=== PATIENT | male | born 1955 | race Caucasian/White ===

== ENCOUNTER → 2022-01-23 10:08 | Outpatient (CLI) | payer MEDICARE, SELFPAY ==
--- NOTE | ~2022-01-23 | CT_ITS ---
EXAMINATION: CT brain wo/w con DATE: 01/23/2022 10:57 INDICATION: Headache, memory change TECHNIQUE: Computed tomography (CT) of the head was performed without intravenous contrast. The mA wa s adjusted according to patient size. Iterative reconstruction technique was employed. Exam dose: 11 99.14 mGy-cm total exam DLP. COMPARISON: None FINDINGS: Vertebral and carotid siphon internal carotid artery calcifications are noted. There is nonspecific diminished attenuation cerebral white matter, likely due to chronic small vessel ischemic changes. No intracranial mass lesion or hemorrhage or cerebrovascular accident is evident. No midline shift or mass effect. No subdural or epidural hematoma. There is moderate cerebral volume loss, predominating in the frontal lobes and moderate cerebellar vo lume loss. No fracture or bone destruction of the cranial vault. The mastoid air cells and included paranasal si nuses are unremarkable. IMPRESSION: Cerebral atherosclerosis and chronic small vessel ischemic changes of the cerebral white matter Moderate cerebral and cerebellar volume loss No acute intracranial finding Reviewed, dictated and finalized at [facility]. Reviewed, dictated and finalized at [facility].
[2022-01-23 10:38] LABS: Estimated Glomerular Filt Rate > 60
== END ==
PROVIDERS: PCP Internal Medicine; Visit Provider Internal Medicine
DX: R51.9 Headache, unspecified (principal); R41.3 Other amnesia; I69.911 Memory deficit following unspecified cerebrovascular disease; I67.2 Cerebral atherosclerosis
CPT/HCPCS: 70470; Q9967

== ENCOUNTER 2023-02-12 11:40 | Emergency (ER) | payer MEDICARE, SELFPAY ==
--- NOTE | 2023-02-12 11:53 | ED.URI ---
HPI - URI/Sore Throat General Stated Complaint: congestion Time Seen by Provider: 02/12/23 11:53 Source: patient Mode of arrival: ambulatory Limitations: no limitations History of Present Illness HPI Narrative: Patient is a 67-year-old male that presents with 3 weeks of cough, congestion and intermittent sore throat and fever. Patient states each day his symptoms are not different. Has taken some [id number] medicine and Flonase daily. States everyone in his family in bed similar symptoms and improved with antibiotics. Denies any shortness of breath, ear pain, nausea, vomiting, diarrhea. States any time mucosa doctor his blood pressure is elevated. States he took it this morning and it was 125/80. Reports he cannot take steroids due to it causing his heart to race. States last time he had steroids he had a heart attack. Related Data Home Medications Medication Instructions Recorded Confirmed alprazolam 0.5 mg tablet 0.5 mg PO QID 07/18/22 aspirin 81 mg tablet,delayed 81 mg PO DAILY 07/18/22 release (Adult Low Dose Aspirin) lamotrigine 100 mg tablet 100 mg PO BID 07/18/22 lancets (Accu-Chek Softclix 07/18/22 Lancets) metoprolol tartrate 75 mg tablet 75 mg PO BID 07/18/22 Allergies Allergy/AdvReac Type Severity Reaction Status Date / Time atorvastatin [From Lipitor] Allergy Unknown Muscle Pain Verified 02/12/23 12:21 bupropion [From Wellbutrin] Allergy Unknown Agitated Verified 02/12/23 12:21 codeine Allergy Unknown Nausea Verified 02/12/23 12:21 escitalopram [From Lexapro] Allergy Unknown Agitated Verified 02/12/23 12:21 Review of Systems Review of Systems: All systems reviewed & are unremarkable except as noted in HPI and below Constitutional: Constitutional: Denies body ache(s), Denies chills, Denies fatigue, Denies fever(s), Denies headache(s), Denies malaise and Denies weakness Eyes: Eyes: Denies blurry vision, Denies itchy eyes and Denies loss of vision ENT: Denies otalgia, Denies headache(s), Reports nasal congestion, Denies sinus pain and Denies sore throat Cardiovascular: Cardiovascular: Denies chest pain, Denies irregular heart rhythm and Denies dyspnea Respiratory: Respiratory: Reports cough and Denies dyspnea Gastrointestinal: Gastrointestinal: Denies abdominal pain, Denies diarrhea, Denies nausea and Denies vomiting Musculoskeletal: Musculoskeletal: Denies back pain, Denies myalgias and Denies arthralgias Integumentary/Breasts: Skin/Breast: Denies pruritus and Denies rash Neurologic: Denies headache(s), Denies loss of vision and Denies weakness Psychiatric: Psychiatric: Reports no additional psychiatric complaints Endocrine: Endocrine: Denies fatigue Allergic/Immunologic: Allergic/Immunologic: Denies itchy eyes PMFSH Past Medical History Medical History (Updated 02/12/23 @ 12:24 by Tracy Underwood, PINKY) Anxiety Attention 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 hyperactivity CAD (coronary artery disease) 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 Diabetes Dizziness Dyslipidemia Falls frequently Hospital discharge follow-up Hypertension Hypothyroidism Ischemic cardiomyopathy Surgical History Surgical History H/O cardiac catheterization H/O hernia repair Family History Family History Mother Diabetes mellitus Hypertension Cerebrovascular accident Depression Father Rheumatoid arthritis Social History Social History Smoking status: Never smoker Alcohol intake: current Substance use: never Living arrangements: with family Spiritual care concerns: No Agree to blood products: No Comments At time of signature, agree with nursing past medical, surgical, social and family history. There is no relevant family history pertinent to the presenting complaint. Exam Const: Gen
[2023-02-12 11:59] VITALS: BP 178/87; PULSE 68; RESP 18; TEMP 36.7; O2SAT 100
== END 2023-02-12 12:27 | disposition home or self-care (01) ==
PROVIDERS: Emergency Provider Nurse Practitioner Family; PCP Family Medicine
DX: J06.9 Acute upper respiratory infection, unspecified (principal); R05.9 Cough, unspecified; I25.10 Atherosclerotic heart disease of native coronary artery without angina pectoris; Z94.1 Heart transplant status; Z95.1 Presence of aortocoronary bypass graft; E11.9 Type 2 diabetes mellitus without complications; E78.5 Hyperlipidemia, unspecified; I10 Essential (primary) hypertension; E03.9 Hypothyroidism, unspecified; F41.9 Anxiety disorder, unspecified; Z79.82 Long term (current) use of aspirin
CPT/HCPCS: 99213; G0463

== ENCOUNTER 2023-03-06 11:01 | Emergency (ER) | payer MEDICARE, SELFPAY ==
[2023-03-06 11:16] VITALS: BP 151/84; PULSE 75; RESP 16; TEMP 35.9; O2SAT 97
--- NOTE | 2023-03-06 11:29 | ED.SKABFB ---
HPI - Skin/Abscess/Foreign Bdy General Chief complaint: Skin/Abscess/Foreign Body Stated complaint: Insect Bite Rt Shoulder Time Seen by Provider: 03/06/23 11:33 Source: patient and RN notes reviewed Mode of arrival: ambulatory Limitations: dementia History of Present Illness HPI narrative: 67-year-old male presents with concern for tick bite to his right shoulder. Reports he pulled the takeoff Sunday, is not sure if the head came out. He reports a small red raised bumps. He denies tenderness, itching. Denies other rash. He denies general malaise, fever, aches, chills, sweats. Denies joint pain. MD complaint: insect bite/sting Related Data Home Medications Medication Instructions Recorded Confirmed alprazolam 0.5 mg tablet 0.5 mg PO QID 07/18/22 02/12/23 aspirin 81 mg tablet,delayed 81 mg PO DAILY 07/18/22 02/12/23 release (Adult Low Dose Aspirin) lamotrigine 100 mg tablet 100 mg PO BID 07/18/22 02/12/23 metoprolol tartrate 75 mg tablet 75 mg PO BID 07/18/22 02/12/23 arginine (L-arginine) 500 mg tablet 500 mg PO BID 02/12/23 02/12/23 citrulline 600 mg capsule (Pure See Rx Instructions .Route .COMPLEX 02/12/23 02/12/23 L-Citrulline) Allergies Allergy/AdvReac Type Severity Reaction Status Date / Time atorvastatin [From Lipitor] Allergy Unknown Muscle Pain Verified 02/12/23 12:21 bupropion [From Wellbutrin] Allergy Unknown Agitated Verified 02/12/23 12:21 codeine Allergy Unknown Nausea Verified 02/12/23 12:21 escitalopram [From Lexapro] Allergy Unknown Agitated Verified 02/12/23 12:21 Review of Systems Review of Systems: CONSTITUTIONAL: Denies malaise, chills, sweats, or fever. EYES: Denies redness, or discharge. ENT: Denies rhinorrhea, congestion, swollen lips, swollen tongue CARDIOVASCULAR: Denies chest pain, palpitations, or edema. RESPIRATORY: Denies cough or dyspnea. GASTROINTESTINAL: Denies abdominal pain, nausea, vomiting SKIN: Reports raised red area at the site of tick bite on his right shoulder, denies other rash. Denies purulent drainage, vesicles, bullae, numbness, pain beyond proportion MUSCULOSKELETAL: Denies joint pain or myalgia. NEUROLOGIC: Denies headache. 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 Diabetes Dizziness Dyslipidemia Falls frequently Hospital discharge follow-up Hypertension Hypothyroidism Ischemic cardiomyopathy Surgical History Surgical History H/O cardiac catheterization H/O hernia repair Family History Family History Mother Diabetes mellitus Hypertension Cerebrovascular accident Depression Father Rheumatoid arthritis Social History Social History Smoking status: Never smoker Alcohol intake: current Substance use: never Living arrangements: with family Spiritual care concerns: No Agree to blood products: No Comments At time of signature, agree with nursing past medical, surgical, social and family history. There is no relevant family history pertinent to the presenting complaint Exam Narrative: GENERAL: Well-appearing, well-nourished, and in no acute distress. HEAD: Normocephalic, atraumatic. EYES: PERRLA, conjunctivae clear ENT: Mucous membranes moist. NECK: Supple. No lymphadenopathy CHEST: Clear to auscultation. No respiratory distress. HEART: Regular rate and rhythm. SKIN: Warm, dry. Erythematous non fluctuant papule with no visible foreign body noted to the right shoulder with a small flat red rash surrounding it approximately 2 cm in diameter. No vesicles, bullae, necrosis, ecchymosis,
== END 2023-03-06 11:47 | disposition home or self-care (01) ==
PROVIDERS: Emergency Provider Nurse Practitioner; PCP Family Medicine
DX: S20.461A Insect bite (nonvenomous) of right back wall of thorax, initial encounter (principal); W57.XXXA Bitten or stung by nonvenomous insect and other nonvenomous arthropods, initial encounter; F41.9 Anxiety disorder, unspecified; Z94.1 Heart transplant status; I25.10 Atherosclerotic heart disease of native coronary artery without angina pectoris; E11.9 Type 2 diabetes mellitus without complications; E78.5 Hyperlipidemia, unspecified; I10 Essential (primary) hypertension; E03.9 Hypothyroidism, unspecified; I25.5 Ischemic cardiomyopathy; Z79.82 Long term (current) use of aspirin
CPT/HCPCS: 99213; G0463

== ENCOUNTER 2023-08-18 12:21 | Emergency (ER) | payer MEDICARE, SELFPAY ==
--- NOTE | 2023-08-18 12:26 | ED.URI ---
HPI - URI/Sore Throat General Chief Complaint: Upper Respiratory Infection Stated Complaint: covid + home test Time Seen by Provider: 08/18/23 12:35 Source: patient, RN notes reviewed and old records reviewed Mode of arrival: ambulatory Limitations: no limitations History of Present Illness HPI Narrative: 68-year-old male presents to the [facility] with 2-3 day history of a cough and sore throat. Denies any other symptoms. Patient took 2 at-home COVID test which both were positive, came in today to make sure that his test were accurate Onset (ago): day(s) (2-3) Treatments prior to arrival: none Related Data Home Medications Medication Instructions Recorded Confirmed aspirin 81 mg tablet,delayed 81 mg PO DAILY 07/18/22 08/18/23 release (Adult Low Dose Aspirin) metoprolol tartrate 75 mg tablet 75 mg PO BID 07/18/22 08/18/23 arginine (L-arginine) 500 mg tablet 500 mg PO BID 02/12/23 08/18/23 citrulline 600 mg capsule (Pure See Rx Instructions .Route .COMPLEX 02/12/23 02/12/23 L-Citrulline) Allergies Allergy/AdvReac Type Severity Reaction Status Date / Time atorvastatin [From Lipitor] Allergy Unknown Muscle Pain Verified 08/18/23 12:36 bupropion [From Wellbutrin] Allergy Unknown Agitated Verified 07/24/23 07:59 codeine Allergy Unknown Nausea Verified 07/24/23 07:59 escitalopram [From Lexapro] Allergy Unknown Agitated Verified 07/24/23 07:59 Review of Systems Review of Systems: All systems reviewed & are unremarkable except as noted in HPI and below Constitutional: Constitutional: Reports no additional constitutional complaints Eyes: Eyes: Reports no additional eye complaints ENT: Reports as per HPI and Reports sore throat Cardiovascular: Cardiovascular: Reports no additional cardiovascular complaints, Denies chest pain and Denies dyspnea Respiratory: Respiratory: Reports as per HPI, Denies chest congestion, Reports cough and Denies dyspnea Gastrointestinal: Gastrointestinal: Reports no additional gastrointestinal complaints, Denies abdominal pain, Denies nausea and Denies vomiting Musculoskeletal: Musculoskeletal: Reports no additional musculoskeletal complaints Integumentary/Breasts: Skin/Breast: Reports system reviewed and no additional complaints, except as docu Neurologic: Reports system reviewed and no additional complaints, except as documented Psychiatric: Psychiatric: Reports no additional psychiatric complaints Allergic/Immunologic: Allergic/Immunologic: Reports no additional allergic/immunologic complaints [facility] Past Medical History Medical History Anxiety Attention 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 hyperactivity CAD (coronary artery disease) 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 Diabetes Dizziness Dyslipidemia Falls frequently Hospital discharge follow-up Hypertension Hypothyroidism Ischemic cardiomyopathy Orthostatic hypotension Surgical History Surgical History H/O cardiac catheterization H/O hernia repair Family History Family History Mother Diabetes mellitus Hypertension Cerebrovascular accident Depression Father Rheumatoid arthritis Social History Social History Smoking status: Never smoker Alcohol intake: current Substance use: never Do You Feel Safe in your Home?: Yes Lack of Transportation: No Lack of Food: Never True Current Housing: I Have Housing Concerned About Future Housing: No Difficulty Paying Gas/Electric Bills: No Difficulty Paying for Meds: No Currently Unemployed: No Education: Don't Know Difficulty w/ Childcare or Family Care: No Living arrangements: with family Spiritual care concerns: No Agree to blood products: No Comments At the time of my signature, I reviewed and agree w
[2023-08-18 12:30] VITALS: BP 187/86; PULSE 92; RESP 18; TEMP 36.3; O2SAT 99
== END 2023-08-18 12:54 | disposition home or self-care (01) ==
PROVIDERS: Emergency Provider Nurse Practitioner; PCP Family Medicine
DX: U07.1 COVID-19 (principal); I25.10 Atherosclerotic heart disease of native coronary artery without angina pectoris; E11.9 Type 2 diabetes mellitus without complications; Z79.84 Long term (current) use of oral hypoglycemic drugs; E78.5 Hyperlipidemia, unspecified; I10 Essential (primary) hypertension; E03.9 Hypothyroidism, unspecified; Z94.1 Heart transplant status; Z79.82 Long term (current) use of aspirin; F41.9 Anxiety disorder, unspecified
CPT/HCPCS: 87426; 99213; G0463